=== PATIENT | male | born 1980 | race Two or more races ===

== ENCOUNTER 2019-08-31 14:01 | Emergency (ER) | payer SELFPAY ==
[~2019-08-31] VITALS: Ht 160 cm; Wt 61.4 kg
--- NOTE | 2019-08-31 14:55 | Diagnostic Imaging Report ---
EXAMINATION: CXR 2 VIEW - HOPD INDICATION: Chest pain COMPARISON: None FINDINGS: PA and lateral views TUBES and LINES: None. LUNGS: Lungs are well inflated. There is no evidence of pneumonia or pulmonary edema. PLEURA: No pleural effusion or pneumothorax. HEART AND MEDIASTINUM: The cardiomediastinal silhouette is unremarkable. BONES AND SOFT TISSUES: No acute osseous lesion. Soft tissues are unremarkable. UPPER ABDOMEN: No free air under the diaphragm. IMPRESSION: No acute thoracic abnormality. Signed by: Dr. Saul Castillo MD on 08/31/2019 2:52 PM
[2019-08-31 15:55] VITALS: BP 126/83
[2019-08-31] MEDS ORDERED: ASPIRIN 325 MG TAB ONE (16:14)
[2019-08-31] MEDS ORDERED: MORPHINE SULFATE 2 MG/ML SYR 1ML IV PRN (16:15)
[2019-08-31] MEDS ORDERED: ASPIRIN 81 MG CHEW TAB PO ONE (16:15)
[2019-08-31] MEDS ORDERED: ONDANSETRON HCL INJ 2MG/ML 2ML 2 MG/ML VIAL IV PRN (16:15)
[2019-08-31] MEDS ORDERED: METOPROLOL TARTRATE 25 MG TAB PO SCH (16:15)
[2019-08-31] MEDS ORDERED: NITROGLYCERIN 0.4 MG SUBL SL PRN (16:15)
[2019-08-31] MEDS ORDERED: SODIUM CHLORIDE FLUSH 10 ML SYR INJ PRN (16:15)
[2019-08-31] MEDS ORDERED: FAMOTIDINE 20 MG TAB PO SCH (16:15)
--- NOTE | 2019-08-31 16:39 | NUR ---
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 Pt wants to sign out AMA and not be admitted. Pt knows the risks and and benefits and understands that he is leaving against the doctors advice.
[2019-08-31] MEDS ORDERED: ENOXAPARIN SOD INJ 60 MG/0.6 ML SYR SC SCH (17:00)
[2019-08-31] MEDS ORDERED: SIMVASTATIN 20 MG TAB PO SCH (21:00)
[2019-09-01] MEDS ORDERED: ASPIRIN 81 MG ENTERIC COATED PO SCH (09:00)
== END 2019-08-31 16:51 | disposition left against medical advice (07) ==
LOC: ER 14:01 → FSED 16:51
DX: R07.89 Other chest pain (principal); R06.00 Dyspnea, unspecified; R94.31 Abnormal electrocardiogram [ECG] [EKG]; I10 Essential (primary) hypertension
CPT/HCPCS: 71046; 93005; 99283; J1650; J2270; J2405